=== PATIENT | male | born 1965 ===

== ENCOUNTER 2018-09-12 00:31 | Emergency (ER) | payer SELFPAY ==
[~2018-09-12] VITALS: Ht 172.7 cm; Wt 89.1 kg
[2018-09-12 00:36] VITALS: BP 118/73; PULSE 91; RESP 18; Ht 172.7 cm; Wt 89.1 kg
== END 2018-09-12 00:41 | disposition left against medical advice (07) ==
LOC: FTE 00:31
DX: Z53.21 Procedure and treatment not carried out due to patient leaving prior to being seen by health care provider (principal)